=== PATIENT | male | born 1995 | race Caucasian/White ===

== ENCOUNTER 2021-05-07 08:22 | Emergency (ER) | payer OTHER, SELFPAY ==
--- NOTE | ~2021-05-07 | XR_ITS ---
EXAMINATION: XR ribs RT 2V INDICATION: Right chest pain TECHNIQUE: 3 views of the right ribs were obtained. COMPARISON: 09/02/2015 FINDINGS: No displaced rib fracture is identified. The bones and soft tissues appear normal. The visu alized portions of the thorax are unremarkable. IMPRESSION: 1. No displaced rib fracture identified. Reviewed, dictated and finalized at location B.
[2021-05-07 08:30] VITALS: BP 150/71; PULSE 80; RESP 18; TEMP 37.2; O2SAT 98
--- NOTE | 2021-05-07 08:35 | ED.GENADULT ---
HPI - General Adult General Chief complaint: Back Pain/Injury Stated complaint: Possible dislocated Rib Time Seen by Provider: 05/07/21 08:35 Source: patient and RN notes reviewed History of Present Illness HPI narrative: Patient is a 25-year-old male who presents the urgent care with complaints of right rib pain. Patient states that he was lifting heavy yesterday doing bicep curls and tweaked his back and believes he dislocated a rib. Patient states that when he pushes on a specific area on his back the pain does reduce. Patient has been taking ibuprofen and using heat. Denies of any shortness of breath. No other acute complaints. No acute distress noted. Patient aware of the plan of care. Some parts of this dictation were generated by voice recognition software and may contain typographical and/or grammatical inaccuracies. Related Data Home Medications Medication Instructions Recorded Confirmed No Home Medications 05/07/21 05/07/21 Allergies Allergy/AdvReac Type Severity Reaction Status Date / Time AMOXICILLIN TRIHYDRATE Allergy Unknown Rash Uncoded 05/07/21 08:40 CEFUROXIME AXETIL Allergy Unknown Rash Uncoded 05/07/21 08:40 POTASSIUM CLAVULANATE Allergy Unknown Rash Uncoded 05/07/21 08:40 Review of Systems Review of Systems: Narrative: CONSTITUTIONAL: Denies fever, chills, or sweats. EYES: Denies visual changes, redness, or discharge. ENT: Denies rhinorrhea, congestion, sore throat, or otalgia. CARDIOVASCULAR: Denies chest pain, palpitations, or edema. RESPIRATORY: Denies cough or dyspnea. GASTROINTESTINAL: Denies abdominal pain, nausea, vomiting, or diarrhea. GENITOURINARY: Denies dysuria or hematuria. SKIN: Denies rash or itching. MUSCULOSKELETAL: Reports of right upper back/rib pain. Denies back pain, joint pain, or myalgia. NEUROLOGIC: Denies headache, numbness, or weakness. All other systems reviewed are negative, except as documented in HPI. PMFSH Comments At the time of my signature, I reviewed and agree with the nursing past medical, surgical, social, and family history. There is no relevant family history pertinent to the patient complaint. Exam Narrative: Exam Narrative: GENERAL: This is a well-nourished, well-developed patient, in no apparent distress. HEAD: normocephalic, atraumatic. EYES: PERRL. Sclera clear/white. Vision is grossly intact. EARS: External ears normal NOSE: External nose normal with no obvious nasal discharge, nares without redness, no rhinorrhea. THROAT: Mucous membranes moist NECK: Neck supple CARDIOVASCULAR: Regular rate and rhythm without murmurs, gallops, or rubs. RESPIRATORY: Clear to auscultation. Breath sounds equal bilaterally. No wheezes, rales, or rhonchi. SKIN: warm, intact with no suspicious lesions or rash, good texture and turgor. NEURO: awake, alert, and oriented to person, place and time. There were no obvious focal neurologic abnormalities. EXTREMITIES: No clubbing, cyanosis, or edema. BACK: Mild right upper back tenderness radiating to the right side/thoracic region Course Vital Signs Vital signs: Vital Signs Temperature 99 F 05/07/21 08:30 Pulse Rate 80 05/07/21 08:30 Respiratory Rate 18 05/07/21 08:30 Blood Pressure 150/71 H 05/07/21 08:30 Pulse Oximetry 98 05/07/21 08:30 Temperature 99 F 05/07/21 08:30 Pulse Rate 80 05/07/21 08:30 Respiratory Rate 18 05/07/21 08:30 Blood Pressure 150/71 H 05/07/21 08:30 Pulse Oximetry 98 05/07/21 08:30 Reviewed-patient is informed that they may have pre-hypertension or hypertension based on a blood pressure reading in the department. I recommend the patient call the primary care provider listed on their discharge instructions or a physician of their choice this week to arrange follow-up for further evaluation of possible pre-hypertension or hypertension. Medical Decision Making MDM Narrative Medical decision making narrative: Reviewed x-ray results with the patient. He is aware
== END 2021-05-07 09:00 | disposition home or self-care (01) ==
PROVIDERS: Emergency Provider Nurse Practitioner Family
DX: R07.81 Pleurodynia (principal)
CPT/HCPCS: 71100; 99203; G0463

== ENCOUNTER 2021-05-26 16:06 | Emergency (ER) | payer OTHER, SELFPAY ==
[2021-05-26 16:18] VITALS: BP 161/59; PULSE 77; RESP 18; TEMP 37.5; O2SAT 100
--- NOTE | 2021-05-26 17:29 | ED.SKABFB ---
HPI - Skin/Abscess/Foreign Bdy General Chief complaint: Skin/Abscess/Foreign Body Stated complaint: stds Time Seen by Provider: 05/26/21 17:29 Source: patient, RN notes reviewed and old records reviewed Mode of arrival: ambulatory Limitations: no limitations History of Present Illness HPI narrative: 25 year old male presents to [facility] care with complaints of having lump to his right breast at the nipple area for the past 3 weeks. He states that he has meena taking Tamoxifen since he felt it with no decrease in size, got medicine from friend it is not prescribed.Patient has grape size nodule noted at right nipple areola area which is movable with no drainage from nipple or stated pain. Patient states that has been weight lifting an he has been taking Testosterone injections weekly regime for a 8 week series.Patient denies any fevers chills or sweats. Patient states that he recently started taking Finasteride for hair loss prevention also. MD complaint: other (lump right breast) Onset (ago): week(s) (3) Treatments prior to arrival: other (took tamoxifen) Related Data Home Medications Medication Instructions Recorded Confirmed testosterone 500 mg IM WEEKLY 05/26/21 05/26/21 Allergies Allergy/AdvReac Type Severity Reaction Status Date / Time AMOXICILLIN TRIHYDRATE Allergy Unknown Rash Uncoded 05/26/21 16:22 CEFUROXIME AXETIL Allergy Unknown Rash Uncoded 05/26/21 16:22 POTASSIUM CLAVULANATE Allergy Unknown Rash Uncoded 05/26/21 16:22 Review of Systems Review of Systems: Narrative: CONSTITUTIONAL: Denies fever, chills, or sweats. EYES: Denies visual changes, redness, or discharge. ENT: Denies rhinorrhea, congestion, sore throat, or otalgia. CARDIOVASCULAR: Denies chest pain, palpitations, or edema. RESPIRATORY: Denies cough or dyspnea. GASTROINTESTINAL: Denies abdominal pain, nausea, vomiting, or diarrhea. GENITOURINARY: Denies dysuria or hematuria. SKIN: Denies rash or itching.Palpable grape size lump to right breast at nipple areola region MUSCULOSKELETAL: Denies back pain, joint pain, or myalgia. NEUROLOGIC: Denies headache, numbness, or weakness. PSYCHIATRIC: Denies anxiety or depression. All systems reviewed & are unremarkable except as noted in HPI and below [facility] Past Medical History Medical History (Updated 05/27/21 @ 20:44 by Angie Maloney NP) Chronic sinus infection Surgical History Surgical History (Updated 05/27/21 @ 20:45 by Angie Maloney NP) H/O adenoidectomy H/O inguinal hernia repair History of placement of ear tubes History of tympanoplasty Family History Family History (Updated 05/27/21 @ 20:46 by Angie Maloney NP) Grandparent Lung cancer Social History Social History (Updated 05/27/21 @ 20:48 by Angie Maloney NP) Smoking status: Former smoker Additional smoking assessment comments: smoked 1/2 pack for 4 years Alcohol intake: former Substance use: current Substance use type: marijuana Last use: prior history of substance abuse Living arrangements: with family Gender identity (if verbalized by the patient): Male Comments At time of signature, agree with nursing past medical, surgical, social and family history. There is no relevant family history pertinent to the presenting complaint Exam Narrative: Exam Narrative: GENERAL: Well-appearing, well-nourished, and in no acute distress. HEAD: Normocephalic, atraumatic. EYES: PERRLA and EOMI. ENT: Nares clear, no rhinorrhea or epistaxis. Mucous membranes moist. NECK: Supple.no lymphadenopathy CHEST: Clear to auscultation. No respiratory distress.SAO2 100% on room air HEART: Regular rate and rhythm. No murmur heard. Normal peripheral pulses. ABDOMEN: Soft, nontender, nondistended, normal active bowel sounds. EXTREMITIES: Normal range of motion. No edema. SKIN: Warm, dry, no rash.palpable lump to right breast at nipple areola area moveable with no pain voiced, no drainage from nipple present for 3 week duration. N
== END 2021-05-26 17:45 | disposition home or self-care (01) ==
PROVIDERS: Emergency Provider Registered Nurse; PCP Internal Medicine
DX: N63.0 Unspecified lump in unspecified breast (principal)
CPT/HCPCS: 99213; G0463

== ENCOUNTER 2021-07-16 18:29 | Emergency (ER) | payer OTHER, SELFPAY ==
[2021-07-16 18:44] VITALS: BP 145/60; PULSE 62; RESP 16; TEMP 36.9; O2SAT 100
--- NOTE | 2021-07-16 19:00 | ED.URI ---
HPI - URI/Sore Throat General Chief Complaint: Urogenital-Male Stated Complaint: STD test Source: patient Mode of arrival: ambulatory Limitations: no limitations History of Present Illness HPI Narrative: Patient is a 26-year-old male who presents complaining of a sore throat. Patient reports that he is mario and was performing oral sex on another male. The other male reported to patient that they had tested for gonorrhea. Patient reports sore throat x3 to 4 days. He denies fever, chest pain, shortness of breath cough or congestion. Related Data Home Medications Medication Instructions Recorded Confirmed raloxifene 60 mg PO DAILY 07/16/21 07/16/21 Allergies Allergy/AdvReac Type Severity Reaction Status Date / Time AMOXICILLIN TRIHYDRATE Allergy Unknown Rash Uncoded 07/16/21 18:58 CEFUROXIME AXETIL Allergy Unknown Rash Uncoded 07/16/21 18:58 POTASSIUM CLAVULANATE Allergy Unknown Rash Uncoded 07/16/21 18:58 Review of Systems Review of Systems: CONSTITUTIONAL: Denies fever, chills, or sweats. EYES: Denies visual changes, redness, or discharge. ENT: Reports sore throat CARDIOVASCULAR: Denies chest pain, palpitations, or edema. RESPIRATORY: Denies cough or dyspnea. GASTROINTESTINAL: Denies abdominal pain, nausea, vomiting, or diarrhea. GENITOURINARY: Denies dysuria or hematuria. SKIN: Denies rash or itching. MUSCULOSKELETAL: Denies back pain, joint pain, or myalgia. NEUROLOGIC: Denies headache, numbness, dizziness, or weakness. PSYCHIATRIC: Denies anxiety or depression. [facility] Past Medical History Medical History Chronic sinus infection Surgical History Surgical History H/O adenoidectomy H/O inguinal hernia repair History of placement of ear tubes History of tympanoplasty Family History Family History Grandparent Lung cancer Social History Social History Smoking status: Former smoker Additional smoking assessment comments: smoked 1/2 pack for 4 years Alcohol intake: former Substance use: current Substance use type: marijuana Last use: prior history of substance abuse Gender identity (if verbalized by the patient): Male Comments At the time of signature, I have reviewed and agree with nursing past medical, surgical, social, and family history unless otherwise noted. Please see nursing chart for further information. There is no relevant family history pertinent to the presenting complaint. Exam Narrative: GENERAL: Well-appearing, well-nourished, and in no acute distress. HEAD: Normocephalic, atraumatic. EYES: EOMI. No redness or drainage. Conjunctiva are normal. ENT: Mucous membranes pink and moist. Nares clear. No rhinorrhea. TMs normal bilaterally. Throat with erythema, no edema or exudate. Uvula midline. CHEST: No respiratory distress. HEART: Regular rate and rhythm. EXTREMITIES: Normal range of motion. SKIN: Warm, dry, no rash. NEURO: No focal deficits. Alert and oriented x3. Gait steady. PSYCH: Normal affect. No signs of depression or anxiety. Course Vital Signs Vital signs: Vital Signs Temperature 36.9 C 07/16/21 18:44 Pulse Rate 62 07/16/21 18:44 Respiratory Rate 16 07/16/21 18:44 Blood Pressure 145/60 H 07/16/21 18:44 Pulse Oximetry 100 07/16/21 18:44 Temperature 36.9 C 07/16/21 18:44 Pulse Rate 62 07/16/21 18:44 Respiratory Rate 16 07/16/21 18:44 Blood Pressure 145/60 H 07/16/21 18:44 Pulse Oximetry 100 07/16/21 18:44 Reviewed MDM - URI/Sore Throat MDM Narrative Medical decision making narrative: Patient treatment with 500 mg of ceftriaxone in urgent care. Patient is stable for discharge home with outpatient follow-up as needed. Patient encouraged to follow with PCP. Differential Diagnosis Differential diagno
[2021-07-16] MEDS: cefTRIAXone 500 MG VIAL IM (19:07)
[2021-07-16] MEDS: LIDOCAINE HCL 1% LOCAL INJ 20 ML VIAL IM (19:07)
== END 2021-07-16 19:27 | disposition home or self-care (01) ==
PROVIDERS: Emergency Provider Nurse Practitioner; PCP Internal Medicine
DX: J02.9 Acute pharyngitis, unspecified (principal); Z87.891 Personal history of nicotine dependence
CPT/HCPCS: 96372; 99213; G0463; J0696

== ENCOUNTER 2022-11-07 13:39 | Emergency (ER) | payer BC, SELFPAY ==
[2022-11-07 14:33] VITALS: BP 151/92; PULSE 77; RESP 16; TEMP 36.9; O2SAT 98
--- NOTE | 2022-11-07 15:16 | ED.URI ---
HPI - URI/Sore Throat General Chief Complaint: Upper Respiratory Infection Stated Complaint: sore throat,cough Time Seen by Provider: 11/07/22 15:16 Source: patient and RN notes reviewed Mode of arrival: ambulatory Limitations: no limitations History of Present Illness HPI Narrative: 27-year-old male presented for complaint of cough, sinus congestion and sore throat this past week. Endorses sinus congestion is green mucus. He has been losing his voice. He is not taking anything for symptoms. He denies sick contacts. He denies shortness of breath, nausea vomiting, diarrhea, fevers or chills. Reports daily vaping MD elicited complaint: cough Related Data Home Medications Medication Instructions Recorded Confirmed raloxifene 60 mg tablet 60 mg PO DAILY 07/16/21 07/16/21 Allergies Allergy/AdvReac Type Severity Reaction Status Date / Time AMOXICILLIN TRIHYDRATE Allergy Unknown Rash Uncoded 07/16/21 18:58 CEFUROXIME AXETIL Allergy Unknown Rash Uncoded 07/16/21 18:58 POTASSIUM CLAVULANATE Allergy Unknown Rash Uncoded 07/16/21 18:58 Review of Systems Review of Systems: Per [facility] Past Medical History Medical History Chronic sinus infection Surgical History Surgical History H/O adenoidectomy H/O inguinal hernia repair History of placement of ear tubes History of tympanoplasty Family History Family History Grandparent Lung cancer Social History Social History Smoking status: Former smoker Additional smoking assessment comments: smoked 1/2 pack for 4 years Alcohol intake: former Substance use: current Substance use type: marijuana Last use: prior history of substance abuse Gender identity (if verbalized by the patient): Male Exam Narrative: GENERAL: Ill-appearing, nontoxic EYES: PERRLA, conjunctivae clear ENT: Mucous membranes moist. TM pearly best with dull light reflex bilaterally; no tragal tenderness. Hoarse voice. Oropharynx erythematous without lesions or exudate, no drooling, no trismus, uvula midline. No tripod positioning, muffled voice, soft palate or pharyngeal wall bulging NECK: Supple. No lymphadenopathy CHEST: Expiratory wheezing noted throughout [place] No respiratory distress, speaks in full sentences. HEART: Regular rate and rhythm. No murmur heard. SKIN: Warm, dry, no rash. NEURO: Alert and oriented x3. PSYCH: Normal mood and affect Course Course Emergency Course: Patient is aware of diagnosis, understands and agrees to treatment plan. Anticipatory guidance given. Patient agrees to follow-up as directed and is aware of reasons to seek care at the emergency department. Portions of this record may have been created with voice recognition software Level of Care: Express Care Visit Vital Signs Vital signs: Vital Signs Temperature 98.4 F 11/07/22 14:33 Pulse Rate 77 11/07/22 14:33 Respiratory Rate 16 11/07/22 14:33 Blood Pressure 151/92 H 11/07/22 14:33 Pulse Oximetry 98 11/07/22 14:33 Temperature 98.4 F 11/07/22 14:33 Pulse Rate 77 11/07/22 14:33 Respiratory Rate 16 11/07/22 14:33 Blood Pressure 151/92 H 11/07/22 14:33 Pulse Oximetry 98 11/07/22 14:33 reviewed MDM - URI/Sore Throat MDM Narrative Medical decision making narrative: Flu, strep, COVID negative. Advised supportive measures and signs/symptoms to go to the ER. Pt is appropriate for outpt treatment and f/u. Differential Diagnosis Differential diagnosis: Likely upper respiratory infection, sinusitis and viral infection Lab Data Labs: Influenza A Screen Negative Reference Range: Negative Influenza B Screen Negative *
== END 2022-11-07 15:34 | disposition home or self-care (01) ==
PROVIDERS: Emergency Provider Nurse Practitioner Family
DX: J40 Bronchitis, not specified as acute or chronic (principal); Z20.822 Contact with and (suspected) exposure to COVID-19; F17.290 Nicotine dependence, other tobacco product, uncomplicated
CPT/HCPCS: 87081; 87426; 87804; 87880; 99213; C9803; G0463

== ENCOUNTER 2024-11-06 14:38 | Emergency (ER) | payer OTHER, SELFPAY ==
[2024-11-06 14:47] VITALS: BP 120/86; PULSE 81; RESP 18; TEMP 37.4; O2SAT 100
--- NOTE | 2024-11-06 15:48 | ED_ITS ---
HPI - Wound/Laceration General Chief Complaint: Wound/Laceration Stated Complaint: left hand knuckle lac Time Seen by Provider: 11/06/24 15:20 Source: patient, family, RN notes reviewed and old records reviewed Mode of arrival: ambulatory Limitations: no limitations History of Present Illness HPI narrative: 29 year old male accompanied by friend presents to [facility] care with complaints of laceration to the left dorsal hand at the 3 MCP joint which he cut on a vinyl fence when they were trying to move a couch into their home. Patient reports that this happened about 5 hours ago and he applied some steri strips to laceration after he washed it with soap and water. Patient reports that his tetanus is up to date. No active bleeding noted. Onset (ago): hour(s) (5 hours ago) Location: other (left dorsal hand at MCP joint area) Extremity Location: Left: hand (dorsal left hand at 3rd MCP joint area) Place: home Patient tetanus UTD: Yes Treatments prior to arrival: other (cleansed and applied steri strip) Related Data Allergies Allergy/AdvReac Type Severity Reaction Status Date / Time AMOXICILLIN TRIHYDRATE Allergy Unknown Rash Uncoded 07/16/21 18:58 CEFUROXIME AXETIL Allergy Unknown Rash Uncoded 07/16/21 18:58 POTASSIUM CLAVULANATE Allergy Unknown Rash Uncoded 07/16/21 18:58 Review of Systems Review of Systems: CONSTITUTIONAL: Denies fever, chills, or sweats. CARDIOVASCULAR: Denies chest pain, palpitations, or edema. RESPIRATORY: Denies cough or dyspnea SKIN: Reports laceration to the anterior aspect of left hand at the 3rd MCP joint region with abrasion of skin above the laceration. no active bleeding MUSCULOSKELETAL: Denies musculoskeletal pain NEUROLOGIC: Denies numbness, or weakness. All systems reviewed & are unremarkable except as noted in HPI and below PMFSH Past Medical History Medical History Chronic sinus infection Surgical History Surgical History History of tympanoplasty History of placement of ear tubes H/O adenoidectomy H/O inguinal hernia repair Family History Family History Grandparent Lung cancer Social History Social History Smoking status: Former smoker Additional smoking assessment comments: smoked 1/2 pack for 4 years Alcohol intake: former Substance use: current Substance use type: marijuana Last use: prior history of substance abuse Living arrangements: with family Gender identity (if verbalized by the patient): Male Comments At time of signature, agree with nursing past medical, surgical, social and family history. There is no relevant family history pertinent to the presenting complaint Exam Narrative: GENERAL: Well-appearing, well-nourished, and in no acute distress. HEAD: Normocephalic, atraumatic. NECK: Supple. no lymphadenopathy CHEST: Clear to auscultation. No respiratory distress. SAO2 100% on room air HEART: Regular rate and rhythm. No murmur heard. Normal peripheral pulses. EXTREMITIES: Normal range of motion. No edema. SKIN: Warm, dry, no rash. Reports 2.5cm laceration to dorsal left hand at 3rd MCP joint with abrasion of skin above laceration, no active bleeding CSM intact left hand. NEURO: No focal deficits. Alert and oriented x3. Course Course Level of Care: Express Care Visit Vital Signs Vital signs: Vital Signs Temperature 37.4 C 11/06/24 14:47 Pulse Rate 81 11/06/24 14:47 Respiratory Rate 18 11/06/24 14:47 Blood Pressure 120/86 11/06/24 14:47 Pulse Oximetry 100 11/06/24 14:47 Oxygen Delivery Room Air 11/06/24 14:47 Temperature 37.4 C 11/06/24 14:47 Pulse Rate 81 11/06/24 14:47 Respiratory Rate 18 11/06/24 14:47 Blood Pressure 120/86 11/06/24 14:47 Pulse Oximetry 100 11/06/24 14:47 Oxygen Delivery Room Air 11/06/24 14:47 Procedures Laceration hand: Date: 11/06/24 Time: 16:00 Site: hand Side (If applicable): left Size (cm): 2.5 Description: linear Depth: simple, single layer Local Anesthetic: lidocaine 1% Amount of anesthesia used (mL): 4 Pre-repair: irrigated extensively and other (cleansed with wound care cleanser) ====== Skin Level ====== Skin layer closed with: nylon Size (cm): 4-0 Number of sutures: 7 Technique: simple, interrupted ====== Subcutaneous Layer ====== ====== Muscle Layer ====== ====== Tendon Layer ====== Dressing: Wound to left hand at 3rd MCP joint cleansed and irrigated extensively. wound localized with Lidocaine 1% 4 ml, 7 interrupted sutures applied to laceration and wound cleansed after completion of suturing with wound cleanser and saline, triple antibiotic ointment applied and large band-aide covering applied.Patient tolerated well. wound care instructions reviewed with patient. MDM - Wound/Laceration MDM Narrative Medical decision making narrative: Wound explored for foreign body and copious irrigation provided with no evidence of FB. Discussed the potential of retained foreign body with the patient and signs/symptoms that should prompt the patient to immediately go to the ED for reevaluation. The wound was explored and no foreign bodies were found. There was no evidence of tendon or nerve lacerations. The wound was closed per procedure note. A sterile dressing was then applied and anticipatory guidance was provided. Tetanus prophylaxis [(was/was not)] given Differential Diagnosis Differential diagnosis: Likely laceration, abrasion, avulsion of skin and other (laceration of left hand at 3rd MCP joint) Medical Records Attestation: I reviewed the patient's medical records. Critical Care Time Critical Care Time Critical Care Time: No Discharge Plan Discharge Clinical Impression: Laceration of hand, left Qualifiers: Encounter type: initial encounter Foreign body presence: without foreign body Qualified Code(s): S61.412A - Laceration without foreign body of left hand, initial encounter Patient Disposition: Home, Self-Care Condition: Stable Instructions: Antibiotic Form, Laceration (ED) Additional Instructions: Keep the area clean and dry No continuous water contact like dishes or swimming You may bathe and wash you hair caution with hair products or lotions Antibiotic ointment to the area 1 time a day Bacitracin dressing of choice watch for infection--redness, swelling, drainage follow up with PCP for suture/staple in removal 10 days recheck with PCP if further concerns or problems If your symptoms persist, change or worsen significantly before you can contact your personal physician then please, without delay, go to the emergency department for further evaluation. Follow-up with PCP in 7-10 days or sooner if needed Follow up with PCP soon in regards to your blood pressure which is elevated above threshold for referral. Blood pressure above 120/80 may indicate pre- hypertension. Minimal diastolic elevation 120/86 Antibiotic for one week as ordered Patient Language: Sinhala Prescriptions: New cephalexin 500 mg capsule 500 mg PO Q12H Qty: 14 0RF Follow-up/Referrals: Juvenal,Sabino Berry MD [Primary Care Provider] - Time of Disposition: 16:34 Quality Rufus Coma Scale Eyes: Open Verbal: Oriented and Alert Motor: Follows Commands [place] Coma Total Score: 15
== END 2024-11-06 16:41 | disposition home or self-care (01) ==
PROVIDERS: Emergency Provider Registered Nurse; PCP Internal Medicine
DX: S61.412A Laceration without foreign body of left hand, initial encounter (principal); X58.XXXA Exposure to other specified factors, initial encounter; Z87.891 Personal history of nicotine dependence; F12.90 Cannabis use, unspecified, uncomplicated
CPT/HCPCS: 12001; 99213; G0463; J2003